=== PATIENT | male | born 1970 | race Caucasian/White ===

== ENCOUNTER 2022-10-11 19:11 | Emergency (ER) | payer OTHER ==
[~2022-10-11] VITALS: Ht 182.9 cm; Wt 82.6 kg
== END 2022-10-11 22:26 | disposition home or self-care (01) ==
LOC: ER 19:11
DX: M79.605 Pain in left leg (principal)

== ENCOUNTER → 2023-01-02 | Emergency (ER) | payer OTHER ==
[~2023-01-02] VITALS: Ht 182.9 cm; Wt 81.6 kg
== END | disposition left against medical advice (07) ==
LOC: ER 21:08
DX: Z53.21 Procedure and treatment not carried out due to patient leaving prior to being seen by health care provider (principal)